=== PATIENT | male | born 1960 | race Caucasian/White ===

== ENCOUNTER 2016-11-30 17:24 | Inpatient (IN) | payer MEDICARE ==
[~2016-11-30] VITALS: Ht 182.9 cm; Wt 86.2 kg
--- NOTE | ~2016-11-30 | CON ---
PATIENT'S NAME: MELISSA BUTLER [facility] AGE: 56 Y [address] ROOM: [place] [address] LOCATION: GPCU ADMIT DATE: 11/30/2016 Consultation DISCHARGE DATE: FAMILY PHYSICIAN: PHYSICIAN, UNKNOWN ATTENDING PHYSICIAN: HONG HARTLEY DATE OF CONSULTATION: 11/30/2016 REFERRING PHYSICIAN: ZAIDA SMITH REASON FOR CONSULTATION: Elevated BUN and creatinine. HISTORY OF PRESENT ILLNESS: A 56-year-old male with history of hypertension for many years on multiple antihypertensive drugs, history of drug use, mostly methamphetamine, transferred from [place], [place] with a creatinine of 9. Nephrology consultation has been called for BE versus BE on CKD. He is known to us with history of multiple episodes of admission with drug abuse and BE. Apparently, for the last 3 days, he was bingeing on methamphetamine and had multiple falls. The has noticed multiple bruise rebecca all over his body along with some scratch ospina. This morning, the noticed that he was moaning while urinating, also noticed some decrease in the urine output. She convinced him to go to the ER, where he was very agitated and combative, also found to be confused. He was given Haldol and Ativan and the patient got sedated heavily since then. On routine chemistry, creatinine was found to be 9 with significant metabolic acidosis with bicarbonate of 11. The patient was transferred afterwards for further management and care in our center. No further history obtainable at this point, as the is not present at the bedside, and the patient is sedated after getting Haldol and Ativan. REVIEW OF SYSTEMS: Could not be obtained as the patient is confused earlier and now sedated. ALLERGIES: NO KNOWN DRUG ALLERGIES FROM THE PREVIOUS MEDICAL RECORD. OUTPATIENT MEDICATIONS: We will try to obtain the previous records from the outside hospital as well as the primary care provider. PAST MEDICAL HISTORY: Hypertension, chronic low back pain, chronic pain syndrome, peptic ulcer, bronchitis, and cholecystitis. PATIENT'S NAME: MELISSA BUTLER [facility] AGE: 56 Y [address] ROOM: [place] [address] LOCATION: GPCU ADMIT DATE: 11/30/2016 Consultation DISCHARGE DATE: FAMILY PHYSICIAN: PHYSICIAN, UNKNOWN ATTENDING PHYSICIAN: HONG HARTLEY PAST SURGICAL HISTORY: Laparoscopic cholecystectomy and orchiectomy. SOCIAL HISTORY: Could not be obtained at this point, as the patient is sedated. FAMILY HISTORY: Could not be obtained as the patient is sedated. PHYSICAL EXAMINATION: VITAL SIGNS: Blood pressure 160/70, pulse of 83, respiratory rate of 16 to 18, temperature afebrile, saturating at 98% on room air. GENERAL: Middle aged male, heavily sedated, has multiple bruise ospina and scratches all over the body. HEAD: Dry mucous membranes, sedated. Extraocular muscle movement could not be checked. NECK: No JVD, no thyromegaly, or lymphadenopathy. CVS: S1 and S2 normal, regular rate and rhythm. No murmur, rub, or gallop. CHEST: Bilateral air entry equal. No wheeze or rales. ABDOMEN: Soft, nontender, nondistended. Bowel sounds are present. EXTREMITIES: As mentioned above, multiple scratch ospina and bruises, mostly over the back. The patient is moaning when while turning. He has significant big bruise on the right costovertebral angle. MUSCULOSKELETAL: Could not be examined. SKIN: Scratch and bruise as mentioned above. PARTS BACK COUNTER MAN: Heavily sedated, detailed examination could not be done at this point. LABORATORY STUDIES: Our hospital lab work is still pending. However, from the outside hospital, the hemoglobin is 13.8, sodium of 141, creatinine of 9, bicarb of 11, chloride of 91. UA: Specific gravity 1030. U-tox is positive for methamphetamine, opioids, and benzodiazepines. ASSESSMENT: 1. Acute kidney injury. No history of kidney problem in the past, however, had an admission in 2015 with similar episodes, possibly secondary to acute tubular necrosis. We would like to rule out hydronephrosis with a stat ultrasound. The patient also had multiple falls in the recent times with a heavy bruise on the right costovertebral angle. We will check about any significant perinephric hematoma. We will send UA and urine electrolytes including sodium, potassium, creatinine, bicarb. Adam has been placed, we will maintain it for strict intake and output. We will go for aggressive volume expansion. At this point, the patient appears to be slightly dry. We will give at least a L or couple of L of normal PATIENT'S NAME: MELISSA BUTLER [facility] AGE: 56 Y [address] ROOM: [id number] [place], [place] [address] LOCATION: GPCU ADMIT DATE: 11/30/2016 Consultation DISCHARGE DATE: FAMILY PHYSICIAN: PHYSICIAN, UNKNOWN ATTENDING PHYSICIAN: HONG HARTLEY saline bolus followed by 125 mL/h. We will recheck the renal panel again tomorrow morning and decide about potential renal replacement therapy, but however at this point, there is no urgent indication for dialysis. 2. Severe anion gap metabolic acidosis, possibly secondary to renal failure. We will recheck the renal panel now and we will change the fluid to bicarb-containing fluid, D5W with 3 amps of bicarb and we will run it at 125 mL/h. We will avoid NS for now, as it may precipitate further non- anion gap metabolic acidosis secondary to dilution. 3. Hypertension. We will hold all antihypertensive at this point. The patient is noted to be on both KARAN inhibitor and ARB. We will not give any antihypertensives overnight, but from tomorrow if needed we will start on a small dose of clonidine. Goal systolic blood pressure will be 130-140 for now. 4. History of drug abuse with methamphetamine. U-tox was positive for methamphetamine, opioids, and benzodiazepines. However, in his prescription medication, we noticed that the patient has some Percocet and some benzodiazepines, which might very well be his prescribed medications. 5. Rhabdomyolysis. CK is 12,800 on outside lab, we will recheck it right now. The patient is getting aggressive IV hydration. We will check the urinalysis also for myoglobinuria. We will follow renal function closely while he is in the hospital. Thank you for allowing me to participate in this patient's care. We will closely monitor the patient's progress along with you. ZAIDA SMITH MD /modl /[id number] d: 12/01/16 0144 t: 03/10/17 1420, CONSULTATION REPORT
--- NOTE | ~2016-11-30 | DS ---
PATIENT'S NAME: MELISSA BUTLER [facility] AGE: 56 Y [address] ROOM: [id number] [place], [place] [address] LOCATION: GPCU ADMIT DATE: 11/30/2016 Discharge Summary DISCHARGE DATE: 12/06/2016 FAMILY PHYSICIAN: Physician, Unknown ATTENDING PHYSICIAN: Dominique Montoya PRINCIPAL DIAGNOSES: 1. Acute kidney injury. 2. Rhabdomyolysis. 3. C. diff colitis. 4. Acute encephalopathy. 5. Substance abuse. BRIEF HOSPITAL COURSE: This is a 56-year-old male with a history of substance abuse and narcotic pain dependence who presents with an altered mental status, BE, and rhabdomyolysis. Please review admission H and P for details of the admission. The patient was treated for BE and rhabdomyolysis with aggressive fluid resuscitation as well as close monitoring and management by the Nephrology Team. The patient presented with a creatinine of over 9 initially with minimal urine output, but with aggressive fluid resuscitation and close monitoring, his urine output and kidney function slowly improved, and kidney function today is pretty much back to what the baseline for him. At discharge today, the patient's creatinine is 1.0 and stable. The patient was also having diarrhea during his hospitalization, which he presented with and was found to have C. diff colitis and he has been treated for with p.o. vanc and he is to finish a total of 10 days course after he is discharged from the hospital as well. I have had a lengthy discussion with the patient about managing substance abuse issues with him and his and they seem to be on- board as far as making significant lifestyle changes at this point. The patient is also noted to have low potassium levels about 3 consistently for the past few days and these have been aggressively replaced and potassium today is 3.5 and I have given him extra 16 mEq of potassium on top of that and the patient at this point is willing to go home on more potassium supplements and have that rechecked in about a week with a PCP. The patient does not currently have the primary care physician, but the patient and will try to arrange for primary care physician close to where they live. At this point, I will discharge the patient with a prescription for potassium replacement and a prescription for renal function panel to be done within 1 week after discharge to follow up on renal function and potassium level. I will also adjust the patient's blood pressure medications and he will be discharged on continued clonidine 0.1 mg b.i.d. and metoprolol 50 mg daily. He had been on losartan at home, but I will hold this until his kidney function is rechecked. PHYSICAL EXAMINATION: GENERAL: The patient during my visitation today is PATIENT'S NAME: MELISSA BUTLER [facility] AGE: 56 Y [address] ROOM: [place] [address] LOCATION: [facility] ADMIT DATE: 11/30/2016 Discharge Summary DISCHARGE DATE: 12/06/2016 FAMILY PHYSICIAN: Physician, Unknown ATTENDING PHYSICIAN: Dominique Montoya awake, alert, and oriented x3, in no apparent distress. CHEST: Clear to auscultation bilaterally. ABDOMEN: Soft, nontender, nondistended. EXTREMITIES: With trace edema. DISPOSITION: Discharge home. FOLLOW UP: He will follow up with a primary care physician within a week and the patient and his are going to find a primary care physician within this time for followup. Greater than 30 minutes were spent in facilitating discharge. MD CECY BANKS/mallory /[id number] d: 12/06/16 2315 t: 12/23/16 0929, DISCHARGE SUMMARY
--- NOTE | ~2016-11-30 | HP ---
PATIENT'S NAME: MELISSA BUTLER [facility] AGE: 56 Y [address] ROOM: [address] [address] [facility] ADMIT DATE: 11/30/2016 History & Physical DISCHARGE DATE: FAMILY PHYSICIAN: PHYSICIAN, UNKNOWN ATTENDING PHYSICIAN: HONG HARTLEY DATE OF SERVICE: CHIEF COMPLAINT: BE, abdominal HISTORY OF PRESENT ILLNESS: This is a 56-year-old male, long history of drug abuser including chronic use of meth, a prior presentation with BE and severe rhabdomyolysis in April of last year, who presents from [place] with similar problem. The patient was apparently brought to the emergency room by after he complained of severe abdominal pain. The patient was also found last night by after she spent whole day outside of the home, and she found him lying on his bed with what appears to be following him having a day of stumbling around the house, and she had evidence of him perhaps lying on the floor for an extended period of time before he eventually to the bed. The patient's abdominal pain this morning that he complained of largely due to a large bruise that he has on his stomach from his fall and probably extended stay while immobile at house. The patient during my visit today was obtunded, but reportedly, he has gotten a dose of Ativan and Haldol on his way to here due to agitation. PAST MEDICAL HISTORY: 1. Hypertension, per medication record, the patient is on lisinopril. 2. Substance abuse issues. SOCIAL HISTORY: The patient lives at home with his , has long history of substance abuse. FAMILY HISTORY: The patient has history of hypertension in the parents. REVIEW OF SYSTEMS: Unable to be conducted due to the patient's mental state. PHYSICAL EXAM: VITAL SIGNS: Blood pressure /65, heart rate 76, respiratory rate 12, saturating 96% on 2 L of oxygen. GENERAL: The patient is obtunded, respond to painful stimuli. SKIN: He has a large bruise over the anterior aspect of his abdomen. Also has multiple scratch ospina on upper and lower extremities. PATIENT'S NAME: MELISSA BUTLER [facility] AGE: 56 Y [address] ROOM: [address] [address] LOC[facility]: [facility] ADMIT DATE: 11/30/2016 History & Physical DISCHARGE DATE: FAMILY PHYSICIAN: PHYSICIAN, UNKNOWN ATTENDING PHYSICIAN: HONG HARTLEY HEENT: Dry mucous membranes. PERRLA. CHEST: Clear to auscultation bilaterally. HEART: S1 and S2, regular rate and rhythm. ABDOMEN: Soft, tender due to bruising on the abdominal wall. Positive bowel sounds. EXTREMITIES: Without edema. MUSCULOSKELETAL: No joint swelling noted. Diffuse muscular bruising and tenderness noted on palpation of abdominal wall. NEURO: The patient is obtunded. No evidence of focal neurological deficits. SIGNIFICANT LABORATORY RESULTS: Creatinine of 9, BUN 106, potassium 4.5. CPK over 12,000. Bicarb of 11. ASSESSMENT AND PLAN: 1. Acute kidney injury. This is likely due to rhabdomyolysis. CPK of greater than 12,000 noted. Mostly, acute kidney injury source is possible rhabdomyolysis with aggressive IV fluids, and we will use half normal saline with 75 bicarb at 200 mL an hour and keep a close eye on urine output. The patient's bicarb is 11 and potassium is 4.5. We will follow labs closely as well. 2. Rhabdomyolysis. This is related to prior history from having spent an extended period of time immobile on the floor at his house likely yesterday. Management as above and treat acute kidney injury. 3. Severe metabolic acidosis. This appears to be related to acute kidney injury as well. 4. Acute encephalopathy. This is also related to acute kidney injury and uremia. Management as above. 5. Substance abuse. The patient had a urine study, and it is positive for opioids and amphetamines. Meths is also known to cause rhabdomyolysis. 6. Hypertension. The patient is supposedly on lisinopril. We will hold the medication in the setting of acute kidney injury. 7. Deep vein thrombosis prophylaxis. We will use subcu heparin. MD CECY BANKS/mallory /[id number] D: [id number] T: [id number] HISTORY & PHYSICAL
[~2016-11-30 17:24] MED LIST: B COMPLEX1 EACH PO; BACLOFEN10 MG PO; BACTRIM 400-801 EACH PO; FLORASTOR250 MG PO; LISINOPRIL20 MG PO; LYRICA75 MG PO; MOBIC7.5 MG PO; NEXIUM40 MG PO; NORVASC10 MG; OXYCONTIN30 MG PO; PERCOCET 10-321 EACH PO; RELAFEN500 MG PO; SINGULAIR10 MG PO
[2016-11-30 20:55] LABS: BASOPHIL % 0.1 %; HEMATOCRIT 42.7 % (37.0-53.0); HEMOGLOBIN 13.8 g/dL (12.0-17.0); IMMATURE GRANULOCYTE % 0.2 %; LYMPHOCYTE # 0.6 K/uL (0.8-4.0); LYMPHOCYTE % 5.6 %; MCH 26.5 pg (27.0-34.0); MCHC 32.3 gm/dL (32.0-36.5); MCV 82.1 fl (83.0-98.0); MONOCYTE # 0.7 K/uL (0.0-1.0); MONOCYTE % 7.2 %; MPV 10.9 fl (9.4-12.4); NEUTROPHIL # (ANC) 8.6 K/uL (1.4-9.0); NEUTROPHIL % 86.9 %; NRBC % 0 /100WBC (0-0.00); PLATELET COUNT 201 K/uL (150-450); RDW-CV 14.1 % (11.9-14.6); WBC 9.9 K/uL (4.0-11.0)
[2016-11-30 21:04] LABS: PROTIME 10.7 SECONDS (9.6-11.1)
[2016-11-30 21:15] LABS: ALBUMIN 3.5 gm/dL (3.5-5.0); PHOSPHORUS 8.3 mg/dL (2.5-4.9); POTASSIUM 4.3 mMol/L (3.7-5.1)
[2016-11-30 21:21] LABS: ANION GAP 26.3 (10.0-19.0); CALCIUM 7.4 mg/dL (8.5-10.5); CREATININE 8.3 mg/dL (0.6-1.3); MAGNESIUM 3.7 mg/dL (1.3-2.6)
[2016-11-30 21:28] LABS: BLOOD URINE 250 /UL (NEGATIVE); COLOR URINE YELLOW (YELLOW); GLUCOSE URINE NEGATIVE (NEGATIVE); KETONE URINE 15 mg/dL (NEGATIVE); LEUKOCYTES URINE NEGATIVE /UL (NEGATIVE); NITRITE URINE NEGATIVE (NEGATIVE); PROTEIN URINE 100 mg/dL (NEGATIVE); TURBIDITY URINE 3+ (CLEAR); UROBILINOGEN URINE NORMAL (NORMAL)
[2016-11-30 21:43] LABS: AMORPHOUS URINE 2+ (NEGATIVE); BACTERIA URINE MANY (NEGATIVE); EPITHELIAL URINE NEGATIVE #/HPF (NEGATIVE); HYALINE CAST URINE 0-2 #/LPF (NEGATIVE); MUCUS URINE 1+ (NEGATIVE); WBC URINE 0-2 #/HPF (NEGATIVE)
[2016-11-30 21:44] LABS: CRYSTALS URINE CALCIUM OXALATE (NEGATIVE)
[2016-11-30 21:50] LABS: BARBITURATE NEGATIVE (NEGATIVE); COCAINE NEGATIVE (NEGATIVE)
[2016-11-30 21:51] LABS: AMPHETAMINE POSITIVE (NEGATIVE); OPIATES POSITIVE (NEGATIVE)
--- NOTE | 2016-12-01 01:44 | NUR ---
Significant Event: Patient arrived to hospital in sedated condition from [facility] ER. Per EMT Patient was given 5mg IM haldol and 2 mg ativan to relieve agitation in [place]. Patient breathing on own, responded isitially to pain and repositioning. Currently opens eyes to voice and responds to his name. Alert to place but not time. Has minimal recollection of events leading to hospitalization. Patient has lopez anchored and draining dark yellow urine: was placed in [place]. IV x 2 with D5/water/bicarb @125 ml/hr via R wrist IV. Following directions at his time. Renal US done. CXR DONE. UA done. Many daily labs ordered. Patient reports multiple recent falls. Patient unable to recall. Patient and both unable to verify home meds, need to identify and call patients home pharmacy for list. Patient was seen by Dr Montoya and Dr Augustine upon arrival to floor. Patient skin in very poor condition. Per patient he is an addicted and frequent meth user. Patient skin has many abrasions, scratch ospina, pick ospina, scabs and bruises. Multiple skin sheets filled out. Follow up: Reorient patient as needed. Patient on RA.
--- NOTE | 2016-12-01 04:59 | NUR ---
Significant Event: Patient continues to be lethargic but shows small signs of improvement. Is able to answer some questions. Denies pain. Alert to self and place at times. Continues to be cooperative. D5/water/Bicarb running in r wrist. L hand SL. Hourly BP. EtCO2 monitoring until awake per Dr Nunez. 1125 urine out of lopez. 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 Follow up: Continue to monitor per POC.
[2016-12-01 05:44] LABS: HEMOGLOBIN 13.7 g/dL (12.0-17.0); MCH 27.5 pg (27.0-34.0); MCHC 34.3 gm/dL (32.0-36.5); MCV 80.3 fl (83.0-98.0); MPV 10.8 fl (9.4-12.4); PLATELET COUNT 183 K/uL (150-450); RBC 4.98 M/uL (4.00-6.00); RDW-CV 14.2 % (11.9-14.6); WBC 8.1 K/uL (4.0-11.0)
[2016-12-01 06:08] LABS: CALCIUM 7.5 mg/dL (8.5-10.5); PHOSPHORUS 5.1 mg/dL (2.5-4.9); POTASSIUM 3.5 mMol/L (3.7-5.1)
[2016-12-01 06:14] LABS: ANION GAP 18.5 (10.0-19.0); CREATININE 5.8 mg/dL (0.6-1.3); MAGNESIUM 3.4 mg/dL (1.3-2.6)
[2016-12-01 06:56] LABS: ABSOLUTE NEUTROPHIL CT (ANC) 6.4 K/uL (1.4-9.0); BANDED NEUTROPHIL # 2.7 K/uL (0.0-0.1); BANDED NEUTROPHILS % 33 %; LYMPHOCYTE # 0.6 K/uL (0.8-4.0); LYMPHOCYTE % 8 %; MONOCYTE # 0.8 K/uL (0.0-1.0); SEGMENTED NEUTROPHIL # 3.7 K/uL (1.4-9.0); SEGMENTED NEUTROPHIL % 46 %
[2016-12-01] MEDS ORDERED: AMBIEN5 MG PO (09:31)
[2016-12-01] MEDS ORDERED: MIRALAX PO527 GM/BOT PO (09:31)
[2016-12-01] MEDS ORDERED: COZAAR100 MG PO (09:31)
[2016-12-01] MEDS ORDERED: MEN'S MULTI-VI1 EACH PO (16:31)
[2016-12-01] MEDS ORDERED: WELCHOL 625MG625 MG PO (16:33)
[2016-12-01] MEDS ORDERED: ZANTAC (NON-FO150 MG PO (16:35)
[2016-12-01 18:44] LABS: ALBUMIN 2.5 gm/dL (3.5-5.0); CALCIUM 7.5 mg/dL (8.5-10.5); PHOSPHORUS 2.4 mg/dL (2.5-4.9)
--- NOTE | 2016-12-01 18:48 | NUR ---
Significant Event: Somnolent, rouses to voice for a few seconds at a time. States his name, and once that he's in the hospital. Recognizes and identifies her when she is here. SBP 130s-160, heart rates 97-104, temp to 100.1 x1 and subsequently 98.2, EtCO2 monitored and WNL. As of this afternoon, requires 2 L per nasal cannula to keep sats >90%. Lungs clear-dim with slight wheezes at times. Incontinent with diarheea stools, C.diff positive this shift. Adam patent, draining pale yellow urine with increased output today. Cooperative with cares. at bedside as of this time. Follow up: Monitor per plan of care. Isolation precautions.
[2016-12-01 18:51] LABS: ANION GAP 12.8 (10.0-19.0); CREATININE 2.8 mg/dL (0.6-1.3); POTASSIUM 2.8 mMol/L (3.7-5.1)
[2016-12-01 19:45] LABS: BICARBONATE 33.1 mmol/L (18.0-23.0); PCO2 36 mmHg (35-45); PO2 81 mmHg (80-90)
[2016-12-02 06:03] LABS: HEMATOCRIT 40.5 % (37.0-53.0); HEMOGLOBIN 13.7 g/dL (12.0-17.0); MCH 27.3 pg (27.0-34.0); MCHC 33.8 gm/dL (32.0-36.5); MCV 80.8 fl (83.0-98.0); PLATELET COUNT 168 K/uL (150-450); RBC 5.01 M/uL (4.00-6.00); RDW-CV 14.4 % (11.9-14.6); WBC 10.4 K/uL (4.0-11.0)
[2016-12-02 06:29] LABS: ALBUMIN 2.6 gm/dL (3.5-5.0); CALCIUM 8.2 mg/dL (8.5-10.5); CREATININE 2.1 mg/dL (0.6-1.3); POTASSIUM 3.4 mMol/L (3.7-5.1)
[2016-12-02 06:35] LABS: ABSOLUTE NEUTROPHIL CT (ANC) 7.8 K/uL (1.4-9.0); BANDED NEUTROPHIL # 1.7 K/uL (0.0-0.1); BANDED NEUTROPHILS % 16 %; LYMPHOCYTE # 1.4 K/uL (0.8-4.0); LYMPHOCYTE % 13 %; MONOCYTE # 1.2 K/uL (0.0-1.0); SEGMENTED NEUTROPHIL # 6.1 K/uL (1.4-9.0); SEGMENTED NEUTROPHIL % 59 %
[2016-12-02 06:37] LABS: ANION GAP 11.4 (10.0-19.0); MAGNESIUM 3.1 mg/dL (1.3-2.6); PHOSPHORUS 1.9 mg/dL (2.5-4.9)
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
[2016-12-02 18:24] LABS: ALBUMIN 2.6 gm/dL (3.5-5.0); CALCIUM 8.3 mg/dL (8.5-10.5); CREATININE 1.9 mg/dL (0.6-1.3)
[2016-12-02 18:32] LABS: ANION GAP 10.9 (10.0-19.0); POTASSIUM 2.9 mMol/L (3.7-5.1)
[2016-12-02 18:33] LABS: PHOSPHORUS 1.6 mg/dL (2.5-4.9)
--- NOTE | 2016-12-03 03:05 | NUR ---
Significant Event:PT ALERT AT THIS TIME. VERY SLEEPY HOWEVER DOES AWAKE TO VERBAL STIMULI.PT PLEASANT AND COROPERATIVE [facility] STAFF DURING SHIFT.CONTINUES TO HAVE LOOSE INCONTIENT STOOLS.DENIES PAIN WHEN ASKED. REPOSISTIONED EVERY 2 HOURS AND PRN. VSS. DENIES PAIN WHEN ASKED.DOES TAKE MEDICATION PO.IV TO RIGHT WRIST RUNNING AT 100ML/HR.SL TO UPPER RIGHT WRIST WELL. MENDOZA CATH PATENT. HERE THIS EVENING. Follow up:
[2016-12-03 05:59] LABS: HEMATOCRIT 39.5 % (37.0-53.0); HEMOGLOBIN 13.1 g/dL (12.0-17.0); MCH 27.1 pg (27.0-34.0); MCHC 33.2 gm/dL (32.0-36.5); MCV 81.8 fl (83.0-98.0); MPV 11.5 fl (9.4-12.4); PLATELET COUNT 180 K/uL (150-450); RBC 4.83 M/uL (4.00-6.00); RDW-CV 14.7 % (11.9-14.6); WBC 11.7 K/uL (4.0-11.0)
[2016-12-03 06:13] LABS: ALBUMIN 2.6 gm/dL (3.5-5.0); ANION GAP 10.5 (10.0-19.0); CALCIUM 8.2 mg/dL (8.5-10.5); CREATININE 1.7 mg/dL (0.6-1.3); MAGNESIUM 2.5 mg/dL (1.3-2.6); PHOSPHORUS 2.5 mg/dL (2.5-4.9); POTASSIUM 2.5 mMol/L (3.7-5.1)
[2016-12-03 06:22] LABS: BANDED NEUTROPHIL # 2.6 K/uL (0.0-0.1); BANDED NEUTROPHILS % 22 %; LYMPHOCYTE # 2.2 K/uL (0.8-4.0); LYMPHOCYTE % 19 %; MONOCYTE # 0.4 K/uL (0.0-1.0); SEGMENTED NEUTROPHIL # 6.4 K/uL (1.4-9.0); SEGMENTED NEUTROPHIL % 55 %
--- NOTE | 2016-12-03 11:52 | NUR ---
Reviewed chart and talked with nurse, Isra. Pt is more alert and oriented today than he has been. Introduced self and care management services to patient. Lives in [facility] with . Denies concerns for me right now about going home on discharge, says his can help him with whatever he needs. Asked me when he will get to go home. Explained to him I am not sure, that will be up to his physician based on how he is improving. Asked him if he has ever gotten treatment for his drug abuse, he was silent for a little bit and then said yes he has. Asked him if he is currently getting treatment and he said no. Explained to him he is putting his health at risk, that he was very ill when he came in, and asked him if he would like information on treatment options near where he lives. He said no he is not, that he will stop because he doesn't want his grandkids around it. Asked him where he has gotten treatment in the past, again he is silent a little bit and says "oh you know, wherever". Says he will be fine. Encouraged him to ask for health care facility administrator if he has concerns about going home and we will help him troubleshoot and give resources. I did call [facility] and talked with Jacnita, she recommended doing internet search of [facility] in [place] as an option. I did and they have an office in [place] for counseling. Internet search revealed they also have [facility] in [place] (12 miles from [place]) as well as a couple others. I printed information off and will get it to patient.
--- NOTE | 2016-12-03 16:08 | NUR ---
Significant Event: A/OX3, VS ON ROOM AIR. PT. HAS BEEN MORE AWAKE/ALERT TODAY, FOLLOWS ALL COMMANDS AND ANSWERS ALL QUESTIONS, STILL A LITTLE SLOW TO RESPOND. 40meq OF IV KCL GIVEN TODAY FOR A K+ OF 2.5 THIS AM. PT/OT WORKED WITH PT. TODAY, GOT UP TO BATHROOM. INCONTINENT OF BM X2. R)WRIST IV REMOVED D/T SLIGHT INFLITRATION. VASELINE GAUZE/GAUZE/COBAN APPLIED TO R)WRIST D/T SCABS BEING PULLED OFF FROM IV TEGADERM. NO COMPLAINTS OF PAIN THIS SHIFT, REPOSITION Q2HR. ENCOURAGE PO INTAKE, MAY HAVE CLEAR LIQUIDS. MENDOZA INTACT WITH 1200mL UOP. PT. HAS BEEN COOPERATIVE WITH CARES TODAY. Follow up: CONTINUE WITH POC.
[2016-12-03 18:55] LABS: ALBUMIN 2.6 gm/dL (3.5-5.0); CALCIUM 8.3 mg/dL (8.5-10.5); CREATININE 1.4 mg/dL (0.6-1.3); MAGNESIUM 2.5 mg/dL (1.3-2.6); PHOSPHORUS 2.4 mg/dL (2.5-4.9)
[2016-12-03 18:57] LABS: ANION GAP 10.7 (10.0-19.0); POTASSIUM 2.7 mMol/L (3.7-5.1)
--- NOTE | 2016-12-04 04:43 | NUR ---
Significant Event: Patient is alert and oriented x 3. Forgetful. VSS on room air. HRs in the 60s-80s. SBPs in the 120s. Afebrile. Up with 1 assist and gait belt. Adam intact. 1050 mls out this shift. BM x 3 this shift. Right forearm IV, saline locked. Denies any pain. In contact isolation for c.diff. Receiving oral vancomycin. Patient is pleasant and cooperative with cares. Follow up:
[2016-12-04 06:09] LABS: BASOPHIL % 0.3 %; EOSINOPHIL # 0.2 K/uL (0.0-0.5); EOSINOPHIL % 1.6 %; HEMATOCRIT 39.5 % (37.0-53.0); IMMATURE GRANULOCYTE # 0.1 K/uL (0.0-0.3); IMMATURE GRANULOCYTE % 0.6 %; LYMPHOCYTE # 1.9 K/uL (0.8-4.0); LYMPHOCYTE % 20.1 %; MCHC 32.9 gm/dL (32.0-36.5); MONOCYTE # 0.9 K/uL (0.0-1.0); MONOCYTE % 9.9 %; MPV 11.4 fl (9.4-12.4); NEUTROPHIL # (ANC) 6.4 K/uL (1.4-9.0); NEUTROPHIL % 67.5 %; NRBC % 0 /100WBC (0-0.00); PLATELET COUNT 196 K/uL (150-450); RBC 4.82 M/uL (4.00-6.00); RDW-CV 14.6 % (11.9-14.6); WBC 9.4 K/uL (4.0-11.0)
[2016-12-04 06:26] LABS: ALBUMIN 2.5 gm/dL (3.5-5.0); ANION GAP 10.5 (10.0-19.0); CALCIUM 8.3 mg/dL (8.5-10.5); CREATININE 1.3 mg/dL (0.6-1.3); MAGNESIUM 2.4 mg/dL (1.3-2.6); PHOSPHORUS 2.5 mg/dL (2.5-4.9)
[2016-12-04 06:30] LABS: POTASSIUM 2.5 mMol/L (3.7-5.1)
--- NOTE | 2016-12-04 12:39 | NUR ---
Talked with nurse and then visited with patient, not sure if he will go home today or tomorrow. He is hopeful for today, waiting for physician to round. Gave him resources I found via internet search for drug treatment in [place], he tells me he is aware of all of them, thanks me for information. Encouraged him to reach out to them when he is struggling with his addiction. Denies needs. Will follow.
--- NOTE | 2016-12-04 17:01 | NUR ---
Significant Event: A/OX3, VSS ON RA. NO COMPLAINTS OF PAIN. PT. UP AD JULIO IN ROOM, WALKED IN HALLS X1 WITH PHYSICAL THERAPY. BM'S X3 TODAY. SHOWERED. MENDOZA D/C'D AT 1455, HAD 800mL URINE OUT BEFORE OUT. PT. HAS VOIDED 50mL THEN IN BATHROOM. 80meq OF PO K+ GIVEN TODAY FOR K+ LEVEL OF 2.5, WILL RECEIVE ANOTHER DOSE TONIGHT. POSSIBLE DISMISSAL TO HOME TOMORROW. Follow up: CONTINUE WITH POC.
--- NOTE | 2016-12-05 04:25 | NUR ---
A/O. HR 60-70s. SBP 120-140s. ROOM AIR. UP AD JULIO IN ROOM. VOIDS PER URINAL. DENIES PAIN. PATIENT REPORTED BMx2. ISOLATION FOR C-DIFF. POSSIBLE HOME TODAY.
[2016-12-05 05:53] LABS: BASOPHIL % 0.3 %; EOSINOPHIL # 0.2 K/uL (0.0-0.5); EOSINOPHIL % 2.1 %; HEMATOCRIT 42.3 % (37.0-53.0); HEMOGLOBIN 13.9 g/dL (12.0-17.0); IMMATURE GRANULOCYTE # 0.1 K/uL (0.0-0.3); IMMATURE GRANULOCYTE % 0.9 %; LYMPHOCYTE % 19.1 %; MCH 27.1 pg (27.0-34.0); MCHC 32.9 gm/dL (32.0-36.5); MCV 82.5 fl (83.0-98.0); MONOCYTE # 1.3 K/uL (0.0-1.0); MONOCYTE % 12.2 %; MPV 10.8 fl (9.4-12.4); NEUTROPHIL # (ANC) 6.8 K/uL (1.4-9.0); NEUTROPHIL % 65.4 %; NRBC % 0 /100WBC (0-0.00); PLATELET COUNT 234 K/uL (150-450); RBC 5.13 M/uL (4.00-6.00); RDW-CV 14.5 % (11.9-14.6); WBC 10.3 K/uL (4.0-11.0)
[2016-12-05 06:09] LABS: ALBUMIN 2.8 gm/dL (3.5-5.0); ANION GAP 12.7 (10.0-19.0); CALCIUM 8.4 mg/dL (8.5-10.5); CREATININE 1.3 mg/dL (0.6-1.3); MAGNESIUM 2.2 mg/dL (1.3-2.6); PHOSPHORUS 2.5 mg/dL (2.5-4.9); POTASSIUM 2.7 mMol/L (3.7-5.1)
--- NOTE | 2016-12-05 10:49 | NUR ---
A-SCREENED D/T LOS USES METH FREQUENTLY; PER CHART REVIEW. SKIN HAS MANY SCRATCH DRAKE, PICK DRAKE, SCABS AND BRUISES. C-DIFF (+). POSSIBLE D/C TODAY OR TOMORROW. HT: 72 IN. WT: 86.2 KG. BMI 25.7 LABS: NA 140, K+ 2.7, LGU 136, BUN 18, HOOP ROLLS OPERATOR 1.3, ALB 2.8 MEDS: BENADRYL, HALDOL, ATIVAN, PROTONIX, VANCOMYCIN, K-TAB DIET RX: REGULAR. PO INTAKE IMPROVED TO 75-100%. EST NUTR NEEDS: 5399-4600 KCALS (25-30 KCALS/KG) 86-95 GM PROTEIN (1.0-1.1 GM/KG) 1 ML FLUID/KCAL D-NOT AT NUTRITION RISK; NO NUTRITION DX IDENTIFIED I-CONTINUE W/CURRENT DIET RX M/E-WILL ASSIST NEEDED
--- NOTE | 2016-12-05 16:00 | NUR ---
Significant Event: A/O. VSS on RA. Denies pain. Up ad timur in room. reports 2 loose stools this shift. K+ 2.7, Dr Montoya notified. Follow up:
[2016-12-05 23:22] LABS: ALBUMIN 2.8 gm/dL (3.5-5.0); ANION GAP 13.1 (10.0-19.0); BLOOD UREA NITROGEN 16 mg/dL (6-24); CALCIUM 8.3 mg/dL (8.5-10.5); CHLORIDE 106 mMol/L (96-110); CO2 27 mMol/L (22-32); CREATININE 1.2 mg/dL (0.6-1.3); ESTIMATED GFR (MDRD EQUATION) > 60; POTASSIUM 3.1 mMol/L (3.7-5.1); SODIUM 143 mMol/L (135-145)
[2016-12-05 23:26] LABS: PHOSPHORUS 1.9 mg/dL (2.5-4.9)
--- NOTE | 2016-12-06 04:21 | NUR ---
A/O. VSS. K+ AT 0000 3.1. 40MEQ IV KCL INFUSING. WILL RECHECK THIS AM. DISSMISSAL TO HOME TODAY. MULTI BMs. DENIES PAIN.
[2016-12-06 06:07] LABS: BASOPHIL % 0.3 %; EOSINOPHIL # 0.3 K/uL (0.0-0.5); EOSINOPHIL % 2.3 %; HEMATOCRIT 38.6 % (37.0-53.0); HEMOGLOBIN 12.7 g/dL (12.0-17.0); IMMATURE GRANULOCYTE # 0.2 K/uL (0.0-0.3); IMMATURE GRANULOCYTE % 1.6 %; LYMPHOCYTE # 1.9 K/uL (0.8-4.0); LYMPHOCYTE % 17.5 %; MCH 27.1 pg (27.0-34.0); MCHC 32.9 gm/dL (32.0-36.5); MCV 82.3 fl (83.0-98.0); MONOCYTE # 0.9 K/uL (0.0-1.0); MONOCYTE % 8.8 %; NEUTROPHIL # (ANC) 7.4 K/uL (1.4-9.0); NEUTROPHIL % 69.5 %; NRBC % 0 /100WBC (0-0.00); PLATELET COUNT 229 K/uL (150-450); RBC 4.69 M/uL (4.00-6.00); RDW-CV 14.4 % (11.9-14.6); WBC 10.6 K/uL (4.0-11.0)
[2016-12-06 06:22] LABS: ALBUMIN 2.7 gm/dL (3.5-5.0); ANION GAP 12.3 (10.0-19.0); BLOOD UREA NITROGEN 13 mg/dL (6-24); CALCIUM 8.1 mg/dL (8.5-10.5); CHLORIDE 107 mMol/L (96-110); CO2 25 mMol/L (22-32); ESTIMATED GFR (MDRD EQUATION) > 60; PHOSPHORUS 2.8 mg/dL (2.5-4.9); SODIUM 141 mMol/L (135-145)
[2016-12-06 06:23] LABS: POTASSIUM 3.3 mMol/L (3.7-5.1)
[2016-12-06] MEDS ORDERED: VANCOMYCIN HCL1 GM PO (12:12)
[2016-12-06] MEDS ORDERED: CATAPRES0.1 MG PO (12:13)
[2016-12-06] MEDS ORDERED: K-TAB 10MEQ10 MEQ PO (12:14)
[2016-12-06] MEDS ORDERED: LOPRESSOR50 MG PO (12:21)
--- NOTE | 2016-12-06 14:29 | NUR ---
Patient dismissed to home. Denies question or concern of discharge. Discussed importance of following up with primary care for renal panel and checking K+ level. Patient verbalizes understanding. IV dc'd. Discussed importance of completing vanco and using bleach at home to clean toilet/bathroom and importance of handwashing.
== END 2016-12-06 14:15 | disposition disaster alternative care site (69) | DRG 682 ==
LOC: GPCU 19:04
PROVIDERS: Internal Medicine Nephrology; ADMIT Internal Medicine
DX: N17.9 Acute kidney failure, unspecified (principal); G93.40 Encephalopathy, unspecified; J96.01 Acute respiratory failure with hypoxia; A04.7 Enterocolitis due to Clostridium difficile; M62.82 Rhabdomyolysis; E87.2 Acidosis; E87.0 Hyperosmolality and hypernatremia; I10 Essential (primary) hypertension; F15.10 Other stimulant abuse, uncomplicated; E87.70 Fluid overload, unspecified; E87.6 Hypokalemia; Z23 Encounter for immunization
CPT/HCPCS: A9270; C9113; G0008; G0480; J1630; J1644; J2060; J3370; J3480; J7030; J7050; J7060

== ENCOUNTER → 2017-01-14 | Outpatient (CLI) | payer MEDICARE ==
[~2017-01-14] MED LIST changes: +AMBIEN5 MG PO; +CATAPRES0.1 MG PO; +COZAAR100 MG PO; +K-TAB 10MEQ10 MEQ PO; +LOPRESSOR50 MG PO; +MEN'S MULTI-VI1 EACH PO; +MIRALAX PO527 GM/BOT PO; +VANCOMYCIN HCL1 GM PO; +WELCHOL 625MG625 MG PO; +ZANTAC (NON-FO150 MG PO
== END ==
LOC: LGSMG 12:26
DX: M62.82 Rhabdomyolysis (principal)

== ENCOUNTER → 2017-01-14 | Outpatient (CLI) | payer MEDICARE | END | disposition disaster alternative care site (69) | LOC: GRAD 14:39 | DX: N17.9 Acute kidney failure, unspecified (principal) ==